=== PATIENT | female | born 1985 | race Caucasian/White ===

== ENCOUNTER 2021-12-26 07:04 | Outpatient (CLI) | payer OTHER | END 2021-12-26 07:15 | disposition home or self-care (01) | LOC: LAB 07:04 | DX: Z11.59 Encounter for screening for other viral diseases (principal); Z01.812 Encounter for preprocedural laboratory examination; E28.8 Other ovarian dysfunction ==

== ENCOUNTER 2021-12-26 08:10 | Outpatient (CLI) | payer OTHER | END 2021-12-26 08:12 | disposition home or self-care (01) | LOC: SONOGRAMA 08:10 | DX: Z11.59 Encounter for screening for other viral diseases (principal); Z01.812 Encounter for preprocedural laboratory examination; E28.8 Other ovarian dysfunction ==